=== PATIENT | female | born 1930 | race Caucasian/White ===

== ENCOUNTER 2017-03-19 17:11 | Observation (INO) | payer OTHER ==
[~2017-03-19] VITALS: Ht 157.5 cm; Wt 68.9 kg
[2017-03-19 17:11] VITALS: BP_SYST 121
[2017-03-19 18:07] LABS: ANION GAP 3 (5-15); CHLORIDE 104 mmol/L (98-107); CREATININE 1.13 mg/dL (0.55-1.30); GLUCOSE 86 mg/dL (70-99); POTASSIUM 4.3 mmol/L (3.5-5.1); SODIUM SERUM 137 mmol/L (136-145); UREA NITROGEN, BLOOD 28 mg/dL (8-21)
[2017-03-19 18:11] LABS: ALANINE AMINOTRANSFERASE 21 U/L (12-78); ALBUMIN 3.9 g/dL (3.4-4.8); ASPARTATE AMINOTRANSFERASE 13 U/L (10-37); TOTAL BILIRUBIN 0.5 mg/dL (0.0-1.0); TOTAL PROTEIN, SERUM 7.2 g/dL (6.4-8.3)
[2017-03-19 18:18] LABS: BASOPHILS # (AUTO) 0.1 K/uL (0.0-0.2); HEMOGLOBIN 7.8 g/dL (12.0-16.0)
[2017-03-19 18:21] LABS: EOSINOPHILS # (AUTO) 0.2 K/uL (0.0-0.4); LYMPHOCYTES # (AUTO) 1.6 K/uL (1.0-5.5)
[2017-03-19 18:22] LABS: BASOPHILS % (AUTO) 0.9 % (0.0-2.0); EOSINOPHILS % (AUTO) 3.2 % (0.0-4.0); HEMATOCRIT 23.1 % (36-48); LYMPHOCYTES % (AUTO) 22.4 % (20.5-51.5); MEAN CORPUSCULAR HEMOGLOBIN 34 pg (27-31); MEAN CORPUSCULAR HGB CONC 34 % (32-36); MEAN CORPUSCULAR VOLUME 102 fL (79.0-98.0); MONOCYTES # (AUTO) 0.3 K/uL (0.0-1.0); MONOCYTES % (AUTO) 4.1 % (1.7-9.3); NEUTROPHILS % (AUTO) 69.4 % (40.0-70.0); PLATELET COUNT (AUTO) 434 K/uL (130-430); RED BLOOD CELL COUNT(AUTO) 2.27 MIL/uL (4.2-6.2); RED CELL DISTRIBUTION WIDTH 17.6 % (9.0-15.0); WHITE BLOOD COUNT (AUTO) 7.2 K/uL (4.8-10.8)
[2017-03-19] MEDS ORDERED: 0.45% NACL 1,000 ML IV SCH (19:09)
[2017-03-19] MEDS ORDERED: INSULIN ASPART 100 UNITS/ML, 10 ML VIAL (NovoLOG) SUBCUT PRN (20:00)
[2017-03-19 20:12] VITALS: BP_SYST 130
[2017-03-20 02:08] VITALS: BP_SYST 136
[2017-03-20 03:51] VITALS: BP_SYST 138
[2017-03-20 04:33] LABS: BASOPHILS % (AUTO) 0.5 % (0.0-2.0); EOSINOPHILS # (AUTO) 0.2 K/uL (0.0-0.4); EOSINOPHILS % (AUTO) 3.9 % (0.0-4.0); HEMATOCRIT 24.5 % (36-48); HEMOGLOBIN 8.1 g/dL (12.0-16.0); LYMPHOCYTES # (AUTO) 1.4 K/uL (1.0-5.5); MEAN CORPUSCULAR HEMOGLOBIN 34 pg (27-31); MEAN CORPUSCULAR HGB CONC 33 % (32-36); MEAN CORPUSCULAR VOLUME 103 fL (79.0-98.0); MONOCYTES # (AUTO) 0.2 K/uL (0.0-1.0); MONOCYTES % (AUTO) 3.8 % (1.7-9.3); NEUTROPHILS # (AUTO) 4.6 K/uL (1.8-7.7); NEUTROPHILS % (AUTO) 69.8 % (40.0-70.0); PLATELET COUNT (AUTO) 404 K/uL (130-430); RED BLOOD CELL COUNT(AUTO) 2.39 MIL/uL (4.2-6.2); RED CELL DISTRIBUTION WIDTH 16.9 % (9.0-15.0); WHITE BLOOD COUNT (AUTO) 6.4 K/uL (4.8-10.8)
[2017-03-20] MEDS ORDERED: FUROSEMIDE 20 MG/2 ML VIAL IVP ONE (06:45)
[2017-03-20 07:35] LABS: BASOPHILS % (AUTO) 0.6 % (0.0-2.0); EOSINOPHILS # (AUTO) 0.3 K/uL (0.0-0.4); EOSINOPHILS % (AUTO) 4.2 % (0.0-4.0); HEMATOCRIT 23.5 % (36-48); HEMOGLOBIN 7.9 g/dL (12.0-16.0); LYMPHOCYTES # (AUTO) 1.3 K/uL (1.0-5.5); LYMPHOCYTES % (AUTO) 21.1 % (20.5-51.5); MEAN CORPUSCULAR HEMOGLOBIN 34 pg (27-31); MEAN CORPUSCULAR HGB CONC 34 % (32-36); MEAN CORPUSCULAR VOLUME 102 fL (79.0-98.0); MONOCYTES # (AUTO) 0.2 K/uL (0.0-1.0); MONOCYTES % (AUTO) 3.5 % (1.7-9.3); NEUTROPHILS # (AUTO) 4.4 K/uL (1.8-7.7); NEUTROPHILS % (AUTO) 70.6 % (40.0-70.0); PLATELET COUNT (AUTO) 361 K/uL (130-430); WHITE BLOOD COUNT (AUTO) 6.2 K/uL (4.8-10.8)
[2017-03-20 08:00] VITALS: BP_SYST 146
[2017-03-20 08:07] LABS: ALANINE AMINOTRANSFERASE 19 U/L (12-78); ALBUMIN 3.4 g/dL (3.4-4.8); ANION GAP 6 (5-15); ASPARTATE AMINOTRANSFERASE 16 U/L (10-37); CALCIUM 8.6 mg/dL (8.4-11.0); CHLORIDE 105 mmol/L (98-107); CREATININE 0.77 mg/dL (0.55-1.30); GLUCOSE 89 mg/dL (70-99); POTASSIUM 3.4 mmol/L (3.5-5.1); SODIUM SERUM 138 mmol/L (136-145); TOTAL BILIRUBIN 0.7 mg/dL (0.0-1.0); TOTAL PROTEIN, SERUM 6.3 g/dL (6.4-8.3); UREA NITROGEN, BLOOD 23 mg/dL (8-21)
[2017-03-20] MEDS ORDERED: POTASSIUM CHLORIDE 10 MEQ TAB.PRT.SR PO ONE (10:15)
[2017-03-20] MEDS ORDERED: DILT120C11 PO (10:30)
[2017-03-20] MEDS ORDERED: METF-303 PO (10:30)
[2017-03-20] MEDS ORDERED: ESCI20TA37 PO (10:34)
[2017-03-20] MEDS ORDERED: LOVA10TA55 PO (10:34)
[2017-03-20] MEDS ORDERED: GLYB1.253 PO (10:34)
[2017-03-20] MEDS ORDERED: POTA-10 PO (10:34)
[2017-03-20] MEDS ORDERED: FURO-150 PO (10:34)
[2017-03-20] MEDS ORDERED: LEVO175T7 PO (10:34)
[2017-03-20 12:15] LABS: BASOPHILS # (AUTO) 0.1 K/uL (0.0-0.2); BASOPHILS % (AUTO) 1.4 % (0.0-2.0); EOSINOPHILS # (AUTO) 0.2 K/uL (0.0-0.4); EOSINOPHILS % (AUTO) 2.8 % (0.0-4.0); HEMATOCRIT 27.7 % (36-48); HEMOGLOBIN 9.3 g/dL (12.0-16.0); LYMPHOCYTES # (AUTO) 1.1 K/uL (1.0-5.5); LYMPHOCYTES % (AUTO) 17.1 % (20.5-51.5); MEAN CORPUSCULAR HEMOGLOBIN 33 pg (27-31); MEAN CORPUSCULAR HGB CONC 34 % (32-36); MEAN CORPUSCULAR VOLUME 98 fL (79.0-98.0); MONOCYTES # (AUTO) 0.3 K/uL (0.0-1.0); MONOCYTES % (AUTO) 5.2 % (1.7-9.3); NEUTROPHILS # (AUTO) 4.8 K/uL (1.8-7.7); NEUTROPHILS % (AUTO) 73.5 % (40.0-70.0); PLATELET COUNT (AUTO) 360 K/uL (130-430); RED BLOOD CELL COUNT(AUTO) 2.84 MIL/uL (4.2-6.2); RED CELL DISTRIBUTION WIDTH 21.5 % (9.0-15.0); WHITE BLOOD COUNT (AUTO) 6.5 K/uL (4.8-10.8)
[2017-03-20 12:17] VITALS: BP_SYST 130
[2017-03-20] MEDS ORDERED: SIMVASTATIN 10 MG TABLET PO SCH (18:00)
[2017-03-20] MEDS ORDERED: LOVASTATIN 20 MG TABLET PO SCH (18:00)
[2017-03-21] MEDS ORDERED: LEVOTHYROXINE SODIUM 0.075 MG TABLET PO SCH (07:00)
[2017-03-21] MEDS ORDERED: DILTIAZEM HCL 180 MG CAP.SR.24H PO SCH (09:00)
[2017-03-21] MEDS ORDERED: CITALOPRAM HYDROBROMIDE 20 MG TABLET PO SCH (09:00)
[2017-03-21] MEDS ORDERED: ESCITALOPRAM OXALATE 10 MG TABLET PO SCH (09:00)
[2017-03-21] MEDS ORDERED: glyBURIDE 5 MG TABLET PO SCH (09:00)
== END 2017-03-20 12:42 | disposition home or self-care (01) ==
LOC: SED 17:11 → STU 19:09
PROVIDERS: ADMIT Internal Medicine; ATTEND Internal Medicine
DX: D64.9 Anemia, unspecified (principal); E11.9 Type 2 diabetes mellitus without complications; I10 Essential (primary) hypertension; E78.5 Hyperlipidemia, unspecified; E03.9 Hypothyroidism, unspecified; E87.6 Hypokalemia
CPT/HCPCS: 36415; 36430; 80053 ×2; 82962 ×2; 85025 ×2; 86886; 86900; 86901; 86920; 99285; G0378 ×2; J1815; J1940; J7030; J7050; P9021 ×2

== ENCOUNTER 2018-11-21 07:28 | Emergency (ER) | payer OTHER, MEDICAID ==
[~2018-11-21] VITALS: Ht 157.5 cm; Wt 90.7 kg
[~2018-11-21 07:28] MED LIST: DILT120C11 PO; DILT240C57 PO; ESCI20TA37 PO; FURO-150 PO; GLYB1.253 PO; LEVO175T7 PO; LOVA10TA55 PO; METF500T6 PO; POTA-10 PO
--- NOTE | 2018-11-21 07:30 | NUR ---
PATIENT SITTING UP ON BED. AAOX4. RESPIRATIONS EVEN AND UNLABORED. DENIES OF ANY CHEST PAIN OR SOB. PT BIB AMBULANCE FOR RIGHT RIB PAIN = 09/03. PT STATES THAT SHE WAS SEEN IN THE ED YESTERDAY, S/P FALL, AND RIGHT RIB PAIN. RIGHT RIB PAIB ONLY PRESENT UPON MOVEMENT. NO PAIN NOTED WHEN RESTING. NO OBJECTIVE S/SX OF PAIN OBSERVED AT THIS TIME. REST AND RELAXATION ENCOURAGED. PT'S DAUGHTER AT BEDSIDE. WILL CONTINUE TO MONITOR. Addendum: 11/21/18 at 0746 by SDEDOJ DENIES OF ANY KO, HEAD TRAUMA, NAUSEA, VOMITING, OR HEADACHE.
--- NOTE | 2018-11-21 07:34 | NUR ---
Patient to ER bed 5 to gown for evaluation. Side rails up. Report given to Diomedes FRANCO.
[2018-11-21 07:35] VITALS: BP_SYST 128
--- NOTE | 2018-11-21 07:35 | NUR ---
PATIENT PLACED ON O2 VIA NC @ 2L/MIN. TOLERATING WELL. O2 SATURATION IMPROVED TO 98%. WILL CONTINUE TO MONITOR.
--- NOTE | 2018-11-21 07:39 | NUR ---
ER Dr. VOGT at bedside examining patient.
[2018-11-21 08:17] LABS: BASOPHILS # (AUTO) 0.1 K/uL (0.0-0.2); BASOPHILS % (AUTO) 1.1 % (0.0-2.0); EOSINOPHILS % (AUTO) 0.3 % (0.0-4.0); HEMATOCRIT 24.1 % (36-48); LYMPHOCYTES # (AUTO) 0.6 K/uL (1.0-5.5); LYMPHOCYTES % (AUTO) 7.4 % (20.5-51.5); MEAN CORPUSCULAR HEMOGLOBIN 34 pg (27-31); MEAN CORPUSCULAR HGB CONC 33 % (32-36); MEAN CORPUSCULAR VOLUME 104 fL (79.0-98.0); MONOCYTES # (AUTO) 0.4 K/uL (0.0-1.0); MONOCYTES % (AUTO) 4.5 % (1.7-9.3); NEUTROPHILS # (AUTO) 6.8 K/uL (1.8-7.7); NEUTROPHILS % (AUTO) 86.7 % (40.0-70.0); PLATELET COUNT (AUTO) 364 K/uL (130-430); RED BLOOD CELL COUNT(AUTO) 2.32 MIL/uL (4.2-6.2); RED CELL DISTRIBUTION WIDTH 23.5 % (9.0-15.0); WHITE BLOOD COUNT (AUTO) 7.9 K/uL (4.8-10.8)
[2018-11-21 08:26] LABS: ANION GAP 6 (5-15); CALCIUM 8.7 mg/dL (8.4-11.0); CHLORIDE 105 mmol/L (98-107); CREATININE 0.73 mg/dL (0.55-1.30); GLUCOSE 143 mg/dL (70-99); POTASSIUM 3.8 mmol/L (3.5-5.1); SODIUM SERUM 140 mmol/L (136-145); UREA NITROGEN, BLOOD 20 mg/dL (8-21)
--- NOTE | 2018-11-21 08:30 | NUR ---
PATIENT REQUESTING TO BE TRANSFERRED TO A CORRECTION FACILITY. SCHOOL OFFICE ASSISTANT AWARE.
[2018-11-21 08:32] LABS: ALANINE AMINOTRANSFERASE 18 U/L (12-78); ALBUMIN 3.5 g/dL (3.4-4.8); ASPARTATE AMINOTRANSFERASE 16 U/L (10-37); TOTAL BILIRUBIN 0.7 mg/dL (0.0-1.0)
--- NOTE | 2018-11-21 08:35 | NUR ---
Patient resting quietly. No acute distress noted.
--- NOTE | 2018-11-21 09:30 | NUR ---
Patient resting quietly. No acute distress noted.
--- NOTE | 2018-11-21 10:30 | NUR ---
Patient resting quietly. No acute distress noted.
--- NOTE | 2018-11-21 11:20 | NUR ---
PATIENT ASSISTED ONTO THE COMMODE. PT ABLE TO URINATE. PERICARE DONE INDEPENDENTLY BY PATIENT. PATIENT ASSISTED BACK ONTO BED.
--- NOTE | 2018-11-21 12:30 | NUR ---
PATIENT SITTING UP ON BED AND EATING LUNCH. TOLERATING WELL. PATIENT IN NO ACUTE DISTRESS.
[2018-11-21] MEDS ORDERED: IBUPROFEN 600 MG TABLET PO ONE (12:45)
--- NOTE | 2018-11-21 13:11 | NUR ---
ATTEMPTED TO CONTACT BRIGITTE AT [facility] FOR REPORT AT [phone]. PLACED ON HOLD FOR 5 MINUTES. WILL TRY AGAIN LATER.
[2018-11-21 13:15] VITALS: BP_SYST 127
--- NOTE | 2018-11-21 13:15 | NUR ---
Patient to be transferred to [facility]. Receiving facility has accepting physician and available space. ER physician has signed transfer form. Patient or responsible green party has agreed to transfer and signed form. Patient belongings inventoried and will be sent with patient. Copy of nursing notes, lab reports, EKG, Physicians Orders and X-rays to be sent with patient. Report called to ARIEL BRASWELL at receiving facility. REPORT GIVEN TO [place] EMT OF [facility][id number]. PATIENT IN GOOD CONDITION AND IN NO ACUTE DISTRESS. [facility] RESUMED CARE OF PATIENT.
--- NOTE | 2018-11-21 13:28 | NUR ---
REPORT GIVEN TO ARIEL BRASWELL OF [facility].
[2018-11-21] MEDS ORDERED: ONDANSETRON HCL 4 MG/2 ML VIAL ONE (13:56)
== END 2018-11-21 13:15 ==
LOC: SED 07:28
DX: S22.32XA Fracture of one rib, left side, initial encounter for closed fracture (principal); J44.9 Chronic obstructive pulmonary disease, unspecified; E11.9 Type 2 diabetes mellitus without complications; I10 Essential (primary) hypertension; Z88.5 Allergy status to narcotic agent; Z79.899 Other long term (current) drug therapy; Z79.4 Long term (current) use of insulin; W19.XXXA Unspecified fall, initial encounter; Y93.89 Activity, other specified; Y92.89 Other specified places as the place of occurrence of the external cause; Y99.8 Other external cause status
CPT/HCPCS: 36415; 71045; 80053; 82962; 85025; 93005; 99284; J2405